=== PATIENT | male | born 1975 | race Caucasian/White ===

== ENCOUNTER 2023-03-08 09:14 | Outpatient (CLI) | payer MEDICAID, SELFPAY | END 2023-03-08 09:15 | disposition home or self-care (01) | LOC: LKVREF 09:15 | PROVIDERS: PCP Family Medicine; Visit Provider Family Medicine | DX: Z13.220 Encounter for screening for lipoid disorders (principal) | CPT/HCPCS: 80061 ==

== ENCOUNTER 2024-04-14 11:27 | Outpatient (CLI) | payer OTHER, SELFPAY | END 2024-04-14 11:28 | disposition home or self-care (01) | PROVIDERS: PCP Family Medicine; Visit Provider Family Medicine | DX: Z13.220 Encounter for screening for lipoid disorders (principal); Z12.5 Encounter for screening for malignant neoplasm of prostate | CPT/HCPCS: 80061; G0103 ==

== ENCOUNTER 2025-02-19 06:52 | Outpatient (CLI) | payer OTHER, SELFPAY ==
--- NOTE | 2025-02-19 08:32 | P.ANES_ITS ---
Anesthesia Charges Start Date/Time Anesthesia Start Date: 02/19/25 Anesthesia Start Time: 07:30 Stop Date/Time Anesthesia Stop Date: 02/19/25 Anesthesia Stop Time: 08:30 Coding CPT Codes CPT Codes: NATAHNIEL LWR INTST NDAL NOS - [id number] ([id number]) P1 - NORMAL HEALTHY PATIENT, QX - DENTURE TECHNICIAN SVJem W/ MED DIRECTION, QK - RESIDENCY PROGRAM COORDINATOR 2-4 CNCRNT NATHANIEL PROC
--- NOTE | 2025-02-19 08:32 | W.ANESCHARGE ---
Anesthesia Charges Start Date/Time Anesthesia Start Date: 02/19/25 Anesthesia Start Time: 07:30 Stop Date/Time Anesthesia Stop Date: 02/19/25 Anesthesia Stop Time: 08:30 Coding CPT Codes CPT Codes: NATHANIEL LWR INTST NDAK NOS - [id number] ([id number]) P1 - NORMAL HEALTHY PATIENT, QX - FINISHER PLATE SVJem W/ MED DIRECTION, QK - STRUCTURAL ARCHITECT 2-4 CNCRNT NATHANIEL PROC
--- NOTE | 2025-02-19 10:43 | P.ANES_ITS ---
Anesthesia Charges Start Date/Time Anesthesia Start Date: 02/19/25 Anesthesia Start Time: 07:30 Stop Date/Time Anesthesia Stop Date: 02/19/25 Anesthesia Stop Time: 08:30 Coding CPT Codes CPT Codes: NATHANIEL LWR INTST NDMT NOS - [id number] ([id number]) P1 - NORMAL HEALTHY PATIENT, QK - CIVIL MANAGER 2-4 CNCRNT ANES PROC, QX - TEST CONSULTANT SVC W/ MED DIRECTION
--- NOTE | 2025-02-19 10:43 | W.ANESCHARGE ---
Anesthesia Charges Start Date/Time Anesthesia Start Date: 02/19/25 Anesthesia Start Time: 07:30 Stop Date/Time Anesthesia Stop Date: 02/19/25 Anesthesia Stop Time: 08:30 Coding CPT Codes CPT Codes: NATHANIEL LWR INTST NDNM NOS - [id number] ([id number]) P1 - NORMAL HEALTHY PATIENT, QK - TUBE WINDER HAND 2-4 CNCRNT ANES PROC, QX - POULTRY CUTTER SVC W/ MED DIRECTION
== END 2025-02-19 06:53 | disposition home or self-care (01) ==
PROVIDERS: PCP Family Medicine; Visit Provider Surgery
DX: Z12.11 Encounter for screening for malignant neoplasm of colon (principal); D12.3 Benign neoplasm of transverse colon; K57.30 Diverticulosis of large intestine without perforation or abscess without bleeding
CPT/HCPCS: 00811; 00812; 45385; J2704